=== PATIENT | male | born 1940 | race Caucasian/White ===

== ENCOUNTER 2016-11-13 21:57 | Emergency (ER) | payer MEDICARE ==
[2016-11-13 22:35] VITALS: RESP 18
--- NOTE | 2016-11-13 23:35 | XR ---
EXAM: XR Left Femur, 2 Views CLINICAL HISTORY: Reason: Hematoma and pain to left TECHNIQUE: Frontal and lateral views of the left femur. COMPARISON: None FINDINGS: Bones/joints: No acute fracture or dislocation identified. Mild degenerative changes of the left hip. Degenerative changes of the left knee. Soft tissues: Soft tissue swelling along the lateral left thigh. IMPRESSION: Soft tissue swelling along the lateral left thigh. No acute fracture or dislocation.
--- NOTE | 2016-11-13 23:51 | ED ---
Lower Extremity Injury HPI - General Chief Complaint: Extremity Injury, Lower Stated Complaint: Leg Pain Time Seen by Provider: 11/13/16 22:15 Source: patient, RN notes reviewed Mode of arrival: wheelchair Limitations: no limitations - History of Present Illness Initial Comments: 76-year-old male presents emergency Department chief complaint ofleft lower extremity pain and swelling. Patient states she is coming along in his leg got pinched. Since she's noticed some increased bruising and swelling to the left leg. Patient states that he was concerns regarding that he should be seen. Patient states he does state there also. Patient states he is able to walkhowever with some pain and difficulty. Patient states he just wanted to make sure everything was okay so he thought that he should be evaluated.Patient denies any recent fever, chills, shortness of breath, chest pain, back pain, abdominal pain, nausea vomiting, numbness or tingling, dysuria or hematuria, constipation or diarrhea, headaches or visual changes, or any other current symptoms. - Related Data Home Medications Medication Instructions Recorded Confirmed Calcium Citrate/Vitamin D3 1 tab PO DAILY 11/13/16 11/13/16 [Calcitrate + Vit D Caplet] Cholecalciferol [Vitamin D3] 5,000 unit PO DAILY 11/13/16 11/13/16 Cyanocobalamin (Vitamin B-12) 2,000 mcg PO DAILY 11/13/16 11/13/16 [Vitamin B-12] Ferrous Sulfate [Feosol] 325 mg PO DAILY 11/13/16 11/13/16 Multivitamins, Thera [Multivitamin 1 tab PO DAILY 11/13/16 11/13/16 (formulary)] Rivaroxaban [Xarelto] 20 mg PO QAM 11/13/16 11/13/16 Allergies Allergy/AdvReac Type Severity Reaction Status Date / Time No Known Allergies Allergy Verified 11/13/16 23:08 Review of Systems ROS Statement: Those systems with pertinent positive or pertinent negative responses have been documented in the HPI. ROS Other: All systems not noted in ROS Statement are negative. Past Medical History Past Medical History: Atrial Fibrillation History of Any Multi-Drug Resistant Organisms: None Reported Past Surgical History: Hernia Repair, Joint Replacement Additional Past Surgical History / Comment(s): colon sx Past Psychological History: No Psychological Hx Reported Smoking Status: Former smoker Past Alcohol Use History: Occasional Past Drug Use History: None Reported General Exam - General Exam Comments Initial Comments: General: The patient is awake and alert, in no distress, and does not appear acutely ill. Neck: The neck is supple, there is no tenderness. Cardiovascular: There is a regular rate and rhythm. No murmur, rub or gallop is appreciated. Respiratory: Lungs are clear to auscultation, respirations are non-labored, breath sounds are equal. No wheezes, stridor, rales, or rhonchi. Musculoskeletal:sensation intact with 2+ pulses. Left extremity. Full range motion of left hip left knee left ankle there is associated swelling bruising abrasion and ecchymosis to left lateral thigh that is enlarged compared to the right. Neurological: CN II-XII intact, There are no obvious motor or sensory deficits. Coordination appears grossly intact. Speech is normal. Skin: Skin is warm and dry and no rashes or lesions are noted. Psychiatric: Normal mood and affect. Limitations: no limitations Course Vital Signs 11/13/16 22:29 Temperature 101.3 F H Pulse Rate 88 Respiratory 18 Rate Blood Pressure 124/69 O2 Sat by Pulse 96 Oximetry - Reevaluation(s) Reevaluation #1: 11/13/16 23:52 temperature was reevaluated by myself which is 98.2 in the room. This time the initial temperature is believe to be an inhaler. Patient was not given any medication for the temperature that he has returned to normal. Medical Decision Making - Medical Decision Making 76-year-old male presents for left leg hematoma. At this time we discussed compression rice elevation. We discussed long-term. We discussed return parameters and follow-up. We discussed all patient's family's questions. He stated he understood and agreed with the plan. They will be discharged home. - Radiology Data Radiology results: report reviewed, image reviewed Disposition Clinical Impression: Hematoma of left lower extremity, Abrasion, left lower leg, initial encounter Disposition: HOME SELF-CARE Condition: Stable Instructions: Abrasion (ED) Additional Instructions: Please use medication as discussed. Please follow up with family doctor if symptoms have not improved over the next two days. Please return to the emergency room if your symptoms increase or worsen or for any other concerns. Referrals: Cynthia Gutierrez MD [STAFF PHYSICIAN] - 1-2 days Time of Disposition: 23:51
[2016-11-14 00:16] VITALS: BP 137/90; PULSE 66; TEMP 98
== END 2016-11-14 00:15 | disposition home or self-care (01) ==
LOC: EC 21:57
DX: S70.12XA Contusion of left thigh, initial encounter (principal); I48.91 Unspecified atrial fibrillation; Z87.891 Personal history of nicotine dependence; Z79.01 Long term (current) use of anticoagulants; Z79.899 Other long term (current) drug therapy; W30.89XA Contact with other specified agricultural machinery, initial encounter; Y93.89 Activity, other specified
CPT/HCPCS: 99283

== ENCOUNTER 2022-08-26 15:53 | Emergency (ER) | payer MEDICARE ==
--- NOTE | 2022-08-26 16:19 | ED ---
Dizziness HPI - General Source: patient, RN notes reviewed Mode of arrival: wheelchair Limitations: no limitations <Jordan Zamarripa - Last Filed: 08/26/22 16:18> - General Source: patient, family, RN notes reviewed Limitations: no limitations <Gary De León - Last Filed: 08/26/22 20:46> - General Chief Complaint: Dizziness Stated Complaint: Dehydration,Sent by PCP Time Seen by Provider: 08/26/22 16:18 - History of Present Illness Initial Comments: 81-year-old male presents emergency Department with chief complaint of dizzines s. Patient states she's felt lightheaded today patient was at his PCPs office for regular checkup was sent over here. Patient does have a history of type 2 diabetes, A. fib. Patient states he states is more dizzy or lightheaded when he states he moves around. (Jordan Zamarripa) Patient is a pleasant 81-year-old male presenting to the emergency department with concerns for dizziness and lightheadedness. Onset of symptoms was today. Patient felt well when he first woke up. Patient has had recent history of low blood pressure. Patient recently had his blood pressure medicine decreased. Patient did see his doctor today and was advised come to the hospital secondary to low blood pressure. Symptoms are worse with upright position and moving around. No isolated area of weakness or confusion. (Gary De León) - Related Data Home Medications Medication Instructions Recorded Confirmed Apixaban [Eliquis] 5 mg PO BID 08/20/22 08/26/22 Atorvastatin Calcium [Lipitor] 40 mg PO HS 08/20/22 08/26/22 Cyanocobalamin (Vitamin B-12) 1,000 mcg PO DAILY 08/20/22 08/26/22 [Vitamin B-12] Folic Acid 0.4 mg PO DAILY 08/20/22 08/26/22 Furosemide [Lasix] 40 mg PO DAILY 08/20/22 08/26/22 Metoprolol Tartrate [Lopressor] 50 mg PO DIRECTED 08/20/22 08/26/22 Potassium Chloride ER [K-Dur 20] 20 meq PO DAILY 08/20/22 08/26/22 Metoprolol Succinate (ER) [Toprol 25 mg PO DAILY 08/26/22 08/26/22 Xl] Previous Rx's Medication Instructions Recorded Insulin Glargine,Hum.rec.anlog 15 units SQ HS #5 each 08/22/22 [Lantus Solostar Pen] metFORMIN HCL ER [Glucophage XR] 1,000 mg PO DAILY #60 tab 08/22/22 Allergies Allergy/AdvReac Type Severity Reaction Status Date / Time No Known Allergies Allergy Verified 08/26/22 17:26 Review of Systems ROS Other: All systems not noted in ROS Statement are negative. <Jordan Zamarripa - Last Filed: 08/26/22 16:18> ROS Other: All systems not noted in ROS Statement are negative. Constitutional: Denies: fever Eyes: Denies: eye pain ENT: Denies: ear pain Respiratory: Denies: cough Cardiovascular: Denies: chest pain Endocrine: Reports: fatigue Gastrointestinal: Denies: abdominal pain Genitourinary: Denies: urgency Skin: Denies: rash Neurological: Denies: headache <Gary De León - Last Filed: 08/26/22 20:46> ROS Statement: Those systems with pertinent positive or pertinent negative responses have been documented in the HPI. Past Medical History Past Medical History: Atrial Fibrillation, Diabetes Mellitus Additional Past Medical History / Comment(s): DM2 History of Any Multi-Drug Resistant Organisms: None Reported Past Surgical History: Hernia Repair, Joint Replacement Additional Past Surgical History / Comment(s): colon sx Past Psychological History: No Psychological Hx Reported Past Alcohol Use History: Occasional Past Drug Use History: None Reported - Past Family History Mother Family Medical History: Diabetes Mellitus <Jordan Zamarripa - Last Filed: 08/26/22 16:18> General Exam Limitations: no limitations <Jordan Zamarripa - Last Filed: 08/26/22 16:18> Limitations: no limitations General appearance: alert, in no apparent distress Head exam: Present: normocephalic Eye exam: Present: normal appearance, PERRL Neck exam: Present: normal inspection. Absent: tenderness, meningismus Respiratory exam: Present: normal lung sounds bilaterally Cardiovascular Exam: Present: irregular rhythm GI/Abdominal exam: Present: soft. Absent: tenderness Extremities exam: Present: pedal edema. Absent: calf tenderness Neurological exam: Present: alert. Absent: motor sensory deficit Expanded Neurological exam: Present: protecting the airway Speech: Present: fluid speech Motor strength exam: RUE: 5, LUE: 5, RLE: 5, LLE: 5 Eye Response: (4) open spontaneously Motor Response: (6) obeys commands Verbal Response: (5) oriented Psychiatric exam: Present: normal affect, normal mood Skin exam: Present: normal color <Gary De León - Last Filed: 08/26/22 20:46> - General Exam Comments Initial Comments: Visual Physical Exam Vital signs reviewed General: Well-appearing, nontoxic, no acute distress. Head: Normocephalic, atraumatic Eyes: PERRLA, EOMI eye patch noted right ENT: Airway patent Chest: Nonlabored breathing Skin: No visual rash, normal skin tone Neuro: Alert and oriented 3 Musculoskeletal: No gross abnormalities (Jordan Zamarripa) Course Vital Signs 08/26/22 08/26/22 08/26/22 16:08 17:29 20:13 Temperature 97.7 F Pulse Rate 82 73 68 Respiratory 20 18 Rate Blood Pressure 97/64 93/55 101/65 O2 Sat by Pulse 98 100 100 Oximetry EKG Findings - EKG Results: EKG: interpreted by ERMD (Left axis. Left bundle branch block. QRS 146. QT 416. QTc 454.) EKG shows: atrial fibrillation <De LeónGary - Last Filed: 08/26/22 20:46> Medical Decision Making - Lab Data Result diagrams: 08/26/22 17:10 08/26/22 17:10 <De LeónGary - Last Filed: 08/26/22 20:46> - Medical Decision Making Was pt. sent in by a medical professional or institution ([facility]OLYNN Sarabia, ZOOLOGY TEACHER, urgent care, hospital, or assisted...) When possible be specific @ -[No] Did you speak to anyone other than the patient for history (EMS, parent, family, police, friend...)? What history was obtained from this source @ -Family is present and help supplement history Did you review nursing and triage notes (agree or disagree)? Why? @ -[I reviewed and agree with nursing and triage notes] Were old charts reviewed (outside hosp., previous admission, EMS record, old EKG, old radiological studies, urgent care reports/EKG's, assisted records)? Report findings @ -[No old charts were reviewed] Differential Diagnosis (chest pain, altered mental status, abdominal pain women, abdominal pain men, vaginal bleeding, weakness, fever, dyspnea, syncope, headache, dizziness, GI bleed, back pain, seizure, CVA, palpatations, mental health)? @ -Differential Weakness: Hypoglycemia, shock, sepsis, hyponatremia, anemia, infection, DE, ETOH, adverse medicine reaction, overdose, stroke, this is not meant to be an all-inclusive list. EKG interpreted by me (3pts min.). @ -[As above] X-rays interpreted by me (1pt min.). @ -Chest x-ray shows no acute process CT interpreted by me (1pt min.). @ -[None done] U/S interpreted by me (1pt. min.). @ -[None done] What testing was considered but not performed or refused? (CT, X-rays, U/S, labs)? Why? @ -[None] What meds were considered but not given or refused? Why? @ -[None] Did you discuss the management of the patient with other professionals (professionals i.e. , PA, ZOOLOGY TEACHER, lab, RT, psych nurse, administrator social welfare, training associate, teacher, chief environmental commitment officer, patient case coordinator)? Give summary @ -[No] Was smoking cessation discussed for >3mins.? @ -[No] Was critical care preformed (if so, how long)? @ -[No] Were there social determinants of health that impacted care today? How? (Homelessness, low income, unemployed, alcoholism, drug addiction, transportation, low edu. Level, literacy, decrease access to med. care, usp, rehab)? @ -[No] Was there de-escalation of care discussed even if they declined (Discuss DNR or withdrawal of care, Hospice)? DNR status @ -[No] What co-morbidities impacted this encounter? (DM, HTN, Smoking, COPD, CAD, Cancer, CVA, ARF, Chemo, Hep., AIDS, mental health diagnosis, sleep apnea, morbid obesity)? @ -[None] Was patient admitted / discharged? Hospital course, mention meds given and route, prescriptions, significant lab abnormalities, going to OR and other pertinent info. @ -Following a liter of fluid patient is reevaluated and feels much better. Patient has had several blood pressures over 100. Discussion with patient regarding admission however patient does not want to be admitted and states he feels much better like to go home. Patient is advised to hold his blood pressure medicines for 1-2 days and do close follow-up with his doctor for further evaluation and will likely need to restart these, possibly of the lower dose. Undiagnosed new problem with uncertain prognosis? @ -[No] Drug Therapy requiring intensive monitoring for toxicity (Heparin, Nitro, Insulin, Cardizem)? @ -[No] Were any procedures done? @ -[No] Diagnosis/symptom? @ -[Hypotension] Acute, or Chronic, or Acute on Chronic? @ -Acute Uncomplicated (without systemic symptoms) or Complicated (systemic symptoms)? @ -[default] Side effects of treatment? @ -[No] Exacerbation, Progression, or Severe Exacerbation? @ -[No] Poses a threat to life or bodily function? How? (Chest pain, USA, DE, pneumonia, PE, COPD, DKA, ARF, appy, cholecystitis, CVA, Diverticulitis, Homicidal, Suicidal, threat to staff... and all critical care pts) @ -[No] (Gary De León) - Lab Data Lab Results 08/26/22 08/26/22 08/26/22 Range/Units 17:10 17:10 17:10 WBC 3.9 (3.8-10.6) k/uL RBC 3.84 L (4.30-5.90) m/uL Hgb 12.3 L (13.0-17.5) gm/dL Hct 35.2 L (39.0-53.0) % MCV 91.8 (80.0-100.0) fL MCH 32.1 (25.0-35.0) pg MCHC 34.9 (31.0-37.0) g/dL RDW 12.7 (11.5-15.5) % Plt Count 128 L (150-450) k/uL MPV 8.6 Neutrophils % 54 % Lymphocytes % 35 % Monocytes % 5 % Eosinophils % 2 % Basophils % 1 % Neutrophils # 2.1 (1.3-7.7) k/uL Lymphocytes # 1.4 (1.0-4.8) k/uL Monocytes # 0.2 (0-1.0) k/uL Eosinophils # 0.1 (0-0.7) k/uL Basophils # 0.0 (0-0.2) k/uL Sodium 137 (137-145) mmol/L Potassium 4.4 (3.5-5.1) mmol/L Chloride 99 (98-107) mmol/L Carbon Dioxide 28 (22-30) mmol/L Anion Gap 10 mmol/L BUN 15 (9-20) mg/dL Creatinine 0.81 (0.66-1.25) mg/dL Est GFR (CKD-EPI)AfAm >90 (>60 ml/min/1.73 sqM) Est GFR (CKD-EPI)NonAf 84 (>60 ml/min/1.73 sqM) Glucose 125 H (74-99) mg/dL Calcium 8.9 (8.4-10.2) mg/dL Magnesium 1.5 L (1.6-2.3) mg/dL Total Bilirubin 1.2 (0.2-1.3) mg/dL AST 25 (17-59) U/L ALT 22 (4-49) U/L Alkaline Phosphatase 75 (38-126) U/L Troponin I (0.000-0.034) ng/mL Total Protein 6.5 (6.3-8.2) g/dL Albumin 3.7 (3.5-5.0) g/dL Urine Color Light Yellow Urine Appearance Clear (Clear) Urine pH 5.0 (5.0-8.0) Ur Specific Center 1.005 (1.001-1.035) Urine Protein Negative (Negative) Urine Glucose (UA) Negative (Negative) Urine Ketones Negative (Negative) Urine Blood Negative (Negative) Urine Nitrite Negative (Negative) Urine Bilirubin Negative (Negative) Urine Urobilinogen <2.0 (<2.0) mg/dL Ur Leukocyte Esterase Negative (Negative) 08/26/22 Range/Units 17:10 WBC (3.8-10.6) k/uL RBC (4.30-5.90) m/uL Hgb (13.0-17.5) gm/dL Hct (39.0-53.0) % MCV (80.0-100.0) fL MCH (25.0-35.0) pg MCHC (31.0-37.0) g/dL RDW (11.5-15.5) % Plt Count (150-450) k/uL MPV Neutrophils % % Lymphocytes % % Monocytes % % Eosinophils % % Basophils % % Neutrophils # (1.3-7.7) k/uL Lymphocytes # (1.0-4.8) k/uL Monocytes # (0-1.0) k/uL Eosinophils # (0-0.7) k/uL Basophils # (0-0.2) k/uL Sodium (137-145) mmol/L Potassium (3.5-5.1) mmol/L Chloride (98-107) mmol/L Carbon Dioxide (22-30) mmol/L Anion Gap mmol/L BUN (9-20) mg/dL Creatinine (0.66-1.25) mg/dL Est GFR (CKD-EPI)AfAm (>60 ml/min/1.73 sqM) Est GFR (CKD-EPI)NonAf (>60 ml/min/1.73 sqM) Glucose (74-99) mg/dL Calcium (8.4-10.2) mg/dL Magnesium (1.6-2.3) mg/dL Total Bilirubin (0.2-1.3) mg/dL AST (17-59) U/L ALT (4-49) U/L Alkaline Phosphatase (38-126) U/L Troponin I <0.012 (0.000-0.034) ng/mL Total Protein (6.3-8.2) g/dL Albumin (3.5-5.0) g/dL Urine Color Urine Appearance (Clear) Urine pH (5.0-8.0) Ur Specific Center (1.001-1.035) Urine Protein (Negative) Urine Glucose (UA) (Negative) Urine Ketones (Negative) Urine Blood (Negative) Urine Nitrite (Negative) Urine Bilirubin (Negative) Urine Urobilinogen (<2.0) mg/dL Ur Leukocyte Esterase (Negative) Disposition <Jordan Zamarripa - Last Filed: 08/26/22 16:18> Is patient prescribed a controlled substance at d/c from ED?: No Time of Disposition: 20:45 <Gary De León - Last Filed: 08/26/22 20:46> Clinical Impression: Hypotension Disposition: HOME SELF-CARE Condition: Stable Instructions (If sedation given, give patient instructions): Hypotension (ED) Additional Instructions: Hold metoprolol and Lasix for 2 days. Please do follow-up with both her primary care physician and screed operator in the next one to 2 days for recheck. You will likely need to restart these medications at some time in the near future, possibly at a different dose. Return for increased dizziness, weakness, w orsening or change in symptoms or any other concerns. Referrals: Elliot Pruitt DO [Primary Care Provider] - 1-2 days Kalyan Wilson MD [STAFF PHYSICIAN] - 1-2 days
[2022-08-26] MEDS ORDERED: SODIUM CHLORIDE 0.9% 500 ML 500 ML IV STA ×2 (17:14→19:47)
[2022-08-26 17:28] LABS: Basophils % (A) 1 %; Eosinophils # (A) 0.1 k/uL (0-0.7); Eosinophils % (A) 2 %; HCT 35.2 % (39.0-53.0); HGB 12.3 gm/dL (13.0-17.5); Lymphocytes # (A) 1.4 k/uL (1.0-4.8); Lymphocytes % (A) 35 %; MCH 32.1 pg (25.0-35.0); MCHC 34.9 g/dL (31.0-37.0); MCV 91.8 fL (80.0-100.0); Mean Platelet Volume 8.6; Monocytes # (A) 0.2 k/uL (0-1.0); Monocytes % (A) 5 %; Neutrophils # (A) 2.1 k/uL (1.3-7.7); Neutrophils % (A) 54 %; Platelet Count 128 k/uL (150-450); RBC 3.84 m/uL (4.30-5.90); RDW 12.7 % (11.5-15.5); WBC 3.9 k/uL (3.8-10.6)
[2022-08-26 18:02] LABS: ALT 22 U/L (4-49); AST 25 U/L (17-59); African American GFR (CKD) >90 (>60 ml/min/1.73 sqM); Albumin 3.7 g/dL (3.5-5.0); Alkaline Phosphatase 75 U/L (38-126); Anion Gap 10 mmol/L; Blood Urea Nitrogen 15 mg/dL (9-20); Calcium 8.9 mg/dL (8.4-10.2); Carbon Dioxide 28 mmol/L (22-30); Chloride 99 mmol/L (98-107); Glucose 125 mg/dL (74-99); Non-African American GFR(CKD) 84 (>60 ml/min/1.73 sqM); Potassium 4.4 mmol/L (3.5-5.1); Sodium 137 mmol/L (137-145); Total Bilirubin 1.2 mg/dL (0.2-1.3); Total Protein 6.5 g/dL (6.3-8.2)
[2022-08-26 18:03] LABS: Magnesium 1.5 mg/dL (1.6-2.3)
[2022-08-26 18:50] LABS: Appearance,Urine Clear (Clear); Bilirubin,Urine Negative (Negative); Blood,Urine Negative (Negative); Color,Urine Light Yellow; Glucose,Urine (UA) Negative (Negative); Ketones,Urine Negative (Negative); Leukocyte Esterase,Urine Negative (Negative); Nitrite,Urine Negative (Negative); Protein,Urine Negative (Negative); Specific Gravity,Urine 1.005 (1.001-1.035); Urobilinogen,Urine <2.0 mg/dL (<2.0)
--- NOTE | 2022-08-26 19:39 | XR ---
EXAMINATION TYPE: XR chest 2V DATE OF EXAM: 08/26/2022 COMPARISON: 08/20/2022 HISTORY: Dizziness TECHNIQUE: 2 view FINDINGS: Heart is normal. Lungs are clear of infiltrate. No heart failure. There are no hilar masses . There are chest leads. There is some spurring in the thoracic spine. IMPRESSION: No active cardiopulmonary disease. Normal heart. No change
[2022-08-26] MEDS ORDERED: MAGNESIUM OXIDE 400 MG TAB PO STA (19:43)
[2022-08-26 20:13] VITALS: RESP 18
[2022-08-26 21:05] VITALS: BP 100/68; PULSE 90; TEMP 97.3
== END 2022-08-26 21:14 | disposition home or self-care (01) ==
LOC: EC 15:53
DX: I95.9 Hypotension, unspecified (principal); E11.9 Type 2 diabetes mellitus without complications; I48.91 Unspecified atrial fibrillation; Z79.01 Long term (current) use of anticoagulants; Z79.899 Other long term (current) drug therapy
CPT/HCPCS: 36415; 71046; 80053; 81003; 83735; 84484; 85025; 93005; 96360; 96361; 99284

== ENCOUNTER 2024-12-21 14:35 | Emergency (ER) | payer MEDICARE ==
[2024-12-21 14:39] VITALS: TEMP 99.2
--- NOTE | 2024-12-21 15:13 | CT ---
EXAMINATION TYPE: CT brain jerald wo con DATE OF EXAM: 12/21/2024 COMPARISON: CLINICAL INDICATION: Male, 84 years old with history of head injury on anticoagulation; PHH, fall, on thinners TECHNIQUE: CT scan of the head and cervical spine are performed without contrast. CT DLP: 1310.[address] CTDI: mGy Automated exposure control for dose reduction was used. Findings: Head CT: Ventricles, basal cisterns and sulci over convexities are mildly to moderately enlarged consistent wi th mild to moderate age-appropriate atrophy. No abnormal density is seen throughout the brain parenchyma and there is no acute intra or extra-axia l hemorrhage. Posterior fossa including the brainstem, fourth ventricle and cerebellar pontine angles are grossly n ormal. The intraorbital contents appear normal and symmetric. Visualized paranasal sinuses are well aerated. CT cervical spine: Craniovertebral junction relationships and prevertebral soft tissues are normal. The cervical vertebral segments are normal in height and alignment and there is no fracture subluxati on. There is moderate disc space narrowing and spondylosis at the C6-7 level. There is mild spondylosis a t the C4-5 and C5-6 levels but the disc spaces are well preserved in height. There is mild facet dege neration. There is moderate degeneration of the uncovertebral joints at the C6-7 level. The bony cervical canal is widely patent and there is no bony encroachment of the neural foramina. The paraspinal soft tissues unremarkable. IMPRESSION: 1. Head CT: No acute bleed or mass effect. Mild to moderate age-appropriate atrophy. 2. CT cervical spine: No acute trauma. 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 [facility], , 12/21/2024 3:11 PM
--- NOTE | 2024-12-21 16:47 | XR ---
EXAMINATION TYPE: XR elbow complete RT DATE OF EXAM: 12/21/2024 4:41 PM INDICATION: Patient age:Male; 84 years old; Reason for study: fall; PHH. pain COMPARISON: None TECHNIQUE: The right elbow was examined in AP, lateral, and oblique projections. FINDINGS: No evidence of any acute osseous pathology, joint dislocation, or soft tissue swelling is n oted. Degenerative changes of the elbow. No evidence of joint effusion is present. IMPRESSION: No evidence of acute fracture. [facility], , 12/21/2024 4:44 PM
[2024-12-21 17:13] VITALS: BP 125/66; PULSE 76; RESP 19
--- NOTE | 2024-12-21 17:19 | ED ---
Fall HPI - General Chief Complaint: Fall Stated Complaint: Fall Time Seen by Provider: 12/21/24 14:40 Source: patient, EMS Mode of arrival: EMS - History of Present Illness Initial Comments: 84-year-old man who presents emergency department after a fall. Patient states that he tripped, lost his balance and fell hitting his right eyebrow on the sidewalk. Patient is on Eliquis and therefore he called EMS. No report of any confusion. Patient denies any headache or visual changes. No numbness, tingling or weakness in his extremities. Denies any neck or back pain. Does have some abrasions over the right elbow but continues to have full normal range of motion. Patient was able to ambulate without difficulty. IV was established by EMS he was placed in a c-collar however he did not receive any medications. No vomiting. No chest pain or difficulty breathing. No other alleviating, precipitating or modifying factors - Related Data Home Medications Medication Instructions Recorded Confirmed Apixaban [Eliquis] 5 mg PO BID 08/20/22 08/26/22 Atorvastatin Calcium [Lipitor] 40 mg PO HS 08/20/22 08/26/22 Cyanocobalamin (Vitamin B-12) 1,000 mcg PO DAILY 08/20/22 08/26/22 [Vitamin B-12] Folic Acid 0.4 mg PO DAILY 08/20/22 08/26/22 Furosemide [Lasix] 40 mg PO DAILY 08/20/22 08/26/22 Metoprolol Tartrate [Lopressor] 50 mg PO DIRECTED 08/20/22 08/26/22 Potassium Chloride ER [K-Dur 20] 20 meq PO DAILY 08/20/22 08/26/22 Metoprolol Succinate (ER) [Toprol 25 mg PO DAILY 08/26/22 08/26/22 Xl] Previous Rx's Medication Instructions Recorded Insulin Glargine,Hum.rec.anlog 15 units SQ HS #5 each 08/22/22 [Lantus Solostar Pen] metFORMIN HCL ER [Glucophage XR] 1,000 mg PO DAILY #60 tab 08/22/22 Allergies Allergy/AdvReac Type Severity Reaction Status Date / Time No Known Allergies Allergy Verified 08/26/22 17:26 Review of Systems ROS Statement: Those systems with pertinent positive or pertinent negative responses have been documented in the HPI. ROS Other: All systems not noted in ROS Statement are negative. Past Medical History Past Medical History: Atrial Fibrillation, Diabetes Mellitus Additional Past Medical History / Comment(s): DM2 History of Any Multi-Drug Resistant Organisms: None Reported Past Surgical History: Hernia Repair, Joint Replacement Additional Past Surgical History / Comment(s): colon sx Past Psychological History: No Psychological Hx Reported Past Alcohol Use History: Occasional Past Drug Use History: None Reported - Past Family History Mother Family Medical History: Diabetes Mellitus General Exam Limitations: no limitations General appearance: alert, in no apparent distress Head exam: Present: normocephalic, other (Abrasion to the right forehead, abrasion to the bridge of the nose. No active bleeding) Eye exam: Present: normal appearance, PERRL, EOMI. Absent: scleral icterus, conjunctival injection, periorbital swelling ENT exam: Present: normal exam, mucous membranes moist Neck exam: Present: normal inspection. Absent: tenderness, meningismus, lymphadenopathy Respiratory exam: Present: normal lung sounds bilaterally. Absent: respiratory distress, wheezes, rales, rhonchi, stridor Cardiovascular Exam: Present: regular rate, normal rhythm, normal heart sounds. Absent: systolic murmur, diastolic murmur, rubs, gallop, clicks GI/Abdominal exam: Present: soft, normal bowel sounds. Absent: distended, tenderness, guarding, rebound, rigid Extremities exam: Present: other (Abrasion to the right elbow with skin tear to the forearm) Neurological exam: Present: alert, oriented X3, CN II-XII intact Psychiatric exam: Present: normal affect, normal mood Course Vital Signs 12/21/24 12/21/24 12/21/24 14:36 15:18 17:00 Temperature 99.2 F Pulse Rate 64 79 76 Respiratory 16 12 19 Rate Blood Pressure 98/75 90/58 125/66 O2 Sat by Pulse 98 98 100 Oximetry Medical Decision Making - Medical Decision Making Was pt. sent in by a medical professional or institution (, PA, HAND BINDERY ASSEMBLY WORKER, urgent care, hospital, or jail...) When possible be specific @ -No Did you speak to anyone other than the patient for history (EMS, parent, family, police, friend...)? What history was obtained from this source @ -Spoke with EMS for history Did you review nursing and triage notes (agree or disagree)? Why? @ -I reviewed and agree with nursing and triage notes Were old charts reviewed (outside hosp., previous admission, EMS record, old EKG, old radiological studies, urgent care reports/EKG's, jail records)? Report findings @ -No old charts were reviewed Differential Diagnosis (chest pain, altered mental status, abdominal pain women, abdominal pain men, vaginal bleeding, weakness, fever, dyspnea, syncope, headache, dizziness, GI bleed, back pain, seizure, CVA, palpatations, mental health, musculoskeletal)? @ -Subarachnoid, subdural, epidural, skull fracture EKG interpreted by me (3pts min.). @ -Yes which demonstrate A-fib with a rate of 78. QRS 86. QTc of 417. No acute ST segment elevations or depressions X-rays interpreted by me (1pt min.). @ -Yes which demonstrates no acute process CT interpreted by me (1pt min.). @ -Yes which demonstrates no acute process U/S interpreted by me (1pt. min.). @ -None done What testing was considered but not performed or refused? (CT, X-rays, U/S, labs)? Why? @ -None What meds were considered but not given or refused? Why? @ -None Did you discuss the management of the patient with other professionals (professionals i.e. , PA, HAND BINDERY ASSEMBLY WORKER, lab, RT, psych nurse, mental health social worker, collector, teacher, conservation officer, case worker)? Give summary @ -No Was smoking cessation discussed for >3mins.? @ -No Was critical care preformed (if so, how long)? @ -No Were there social determinants of health that impacted care today? How? (Homelessness, low income, unemployed, alcoholism, drug addiction, transportation, low edu. Level, literacy, decrease access to med. care, skilled nursing, rehab)? @ -No Was there de-escalation of care discussed even if they declined (Discuss DNR or withdrawal of care, Hospice)? DNR status @ -No What co-morbidities impacted this encounter? (DM, HTN, Smoking, COPD, CAD, Cancer, CVA, ARF, Chemo, Hep., AIDS, mental health diagnosis, sleep apnea, morbid obesity)? @ -A-fib Was patient admitted / discharged? Hospital course, mention meds given and route, prescriptions, significant lab abnormalities, going to OR and other pertinent info. @ -Upon arrival patient seen and evaluated in bed 5. Thorough history and physical exam was performed. Code coag is activated. Patient does go for CT of his head and cervical spine which demonstrates no acute process. X-rays performed of the elbow. We did clean up the patient's wounds. None of them are amenable to suture or staple repair. Patient will be discharged home. He is able to ambulate without difficulty. He is to monitor his symptoms. Follow-up with his doctor in 2 to 4 days and return for any new or worsening symptoms. Patient was agreeable to plan he was discharged home in stable condition Undiagnosed new problem with uncertain prognosis? @ -No Drug Therapy requiring intensive monitoring for toxicity (Heparin, Nitro, Insulin, Cardizem)? @ -No Were any procedures done? @ -No Diagnosis/symptom? @ -Acute fall, blunt head trauma, facial abrasions, right arm skin tear, history of A-fib on Eliquis Acute, or Chronic, or Acute on Chronic? @ -Acute Uncomplicated (without systemic symptoms) or Complicated (systemic symptoms)? @ -Complicated Side effects of treatment? @ -No Exacerbation, Progression, or Severe Exacerbation? @ -No Poses a threat to life or bodily function? How? (Chest pain, [place], PR, pneumonia, PE, COPD, DKA, ARF, appy, cholecystitis, CVA, Diverticulitis, Homicidal, Suicidal, threat to staff... and all critical care pts) @ -No Disposition Clinical Impression: Fall, Head injury, Facial abrasion, Elbow pain Disposition: HOME SELF-CARE Condition: Stable Instructions (If sedation given, give patient instructions): Head Injury (ED), Abrasion (ED) Additional Instructions: Please follow-up with your primary care doctor in 2 to 4 days. Return to the emergency department for any new or worsening symptoms Is patient prescribed a controlled substance at d/c from ED?: No Referrals: Elliot Pruitt DO [Primary Care Provider] - 1-2 days Time of Disposition: 17:19
== END 2024-12-21 17:33 | disposition home or self-care (01) ==
LOC: EC 14:35
DX: S00.81XA Abrasion of other part of head, initial encounter (principal); S50.311A Abrasion of right elbow, initial encounter; I48.91 Unspecified atrial fibrillation; W01.0XXA Fall on same level from slipping, tripping and stumbling without subsequent striking against object, initial encounter
CPT/HCPCS: 70450; 72125; 99284